=== PATIENT | male | born 1990 | race African-American/Black ===

== ENCOUNTER 2020-10-31 15:46 | Emergency (ER) | payer OTHER ==
[~2020-10-31 15:46] MED LIST: Iopamidol 370 76% 125 ML VIAL FS ONE
[2020-10-31 16:15] LABS: #Basophils 0.1 thou/uL (0.0-0.2); #Lymphocytes 1.3 thou/uL (1.20-3.40); #Monocytes 0.6 thou/uL (0.11-0.59); #Neutrophils 3.9 thou/uL (1.40-6.50); %Eosinophils 0.1 % (0.0-10.0); %Lymphocytes 21.6 % (21.0-51.0); %Monocytes 10.6 % (0.0-10.0); %Neutrophils 66.7 % (42.0-75.0); Hemoglobin 16.5 g/dL (14.0-18.0); Mean Corpuscular HGB CONC 32.1 g/dL (32.0-36.0); Mean Corpuscular Hemoglobin 29.8 pg (27.0-31.0); Mean Corpuscular Volume 92.8 fL (78.0-98.0); Platelet Count 213 thou/uL (130-400); Red Blood Cell (RBC) Count 5.52 mill/uL (4.70-6.10); White Blood Cell (WBC) Count 5.8 thou/uL (4.8-10.8)
[2020-10-31] MEDS ORDERED: Sodium Chloride 0.9% 1,000 ML ONE (16:22)
[2020-10-31] MEDS ORDERED: methylPREDNISolone Sod Succ/PF 125 MG/2 ML VIAL ONE (16:22)
[2020-10-31] MEDS ORDERED: Albuterol 200 PUFF (6.7GM INHALER) ONE (16:22)
[2020-10-31 16:32] LABS: ALT (SGPT) 22 U/L (8-55); AST (SGOT) 23 U/L (5-34); Albumin 5.1 g/dL (3.5-5.0); Alkaline Phosphatase 60 U/L (40-110); Anion Gap 20 mmol/L (10-20); BUN (Urea Nitrogen) 20 mg/dL (8.9-20.6); Bilirubin, Total 0.9 mg/dL (0.2-1.2); CK (CPK) 281 U/L (30-200); Calc. Creatinine Clearance 0 mL/min (70-130); Calcium 9.7 mg/dL (7.8-10.44); Carbon Dioxide 22 mmol/L (22-29); Chloride 104 mmol/L (98-107); Globulin 3.4 g/dL (2.4-3.5); Glucose 94 mg/dL (70-105); Lipase 22 U/L (8-78); Protein, Total 8.5 g/dL (6.0-8.3); Sodium 142 mmol/L (136-145)
--- NOTE | 2020-10-31 16:58 | RAD ---
Chest one view HISTORY: Chest pain. FINDINGS: The cardiac silhouette and pulmonary vasculature are unremarkable. Mediastinum is midline. No confluent airspace consolidation or evidence of pneumothorax. Acute leftward convex curvature of the upper thoracic spine. 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 Incomplete posterior fusion of T5. IMPRESSION : No acute abnormalities are demonstrated.
[2020-10-31 17:33] LABS: Acetaminophen Less than 6.0 mcg/mL (10.0-30.0); Alcohol Less than 10 mg/dL (Less than 10); Salicylate Less than 8.0 mg/dL (15.0-30.0)
--- NOTE | 2020-10-31 17:44 | CT ---
CTA Angio Chest W WO Con 10/31/2020 4:55 PM Indication: Chest tightness and nonproductive cough for one week Technique: Multiple CTA images were obtained of the thorax with IV contrast. 3-D rendering: MIP sofi nstructed images were created and reviewed. Comparison: No relevant prior studies available. Findings: Pulmonary arteries: There is a nonocclusive filling defect seen within the right interlobar artery o n image 57 of series 2 suspicious for pulmonary embolus. There is a partially occlusive thrombus seen involving the inferior segmental pulmonary artery of the lingula on image 59 of series 2. Heart and Aorta: Normal appearing. Mediastinum:Normal appearing. No enlarged lymph nodes. Lungs:The lungs are clear. Pleural space: Clear. Upper Abdomen: No acute abnormality. 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 No acute fracture is evident. Soft tissues:No abnormality. Other findings:None. Impression: 1. Nonocclusive filling defect within the right interlobar artery suspicious for pulmonary embolus. P artially occlusive thrombus within the inferior segmental pulmonary artery of the lingula. 2. Mild congenital scoliosis. 3. Findings called Dr. Perez 5:41 PM on October 31, 2020.
[2020-10-31 18:30] LABS: INR-International Normal Ratio 0.9; PTT 25.2 sec (22.9-36.1); Prothrombin Time 12.5 sec (12.0-14.7)
[2020-10-31] MEDS ORDERED: Enoxaparin Sodium 40 MG/0.4 ML SYRINGE ONE (18:36)
[2020-10-31] MEDS ORDERED: Enoxaparin Sodium 30 MG/0.3 ML SYRINGE ONE (18:36)
[2020-10-31 19:07] LABS: Amphetamine Not Detected (NotDetected); Barbiturates Screen Not Detected (NotDetected); Benzodiazepine Screen Not Detected (NotDetected); Cocaine Metabolite Screen Not Detected (NotDetected); Medtox Control Line Valid? VALID (VALID); Methadone Not Detected (NotDetected); Methamphetamine Not Detected (NotDetected); Opiate Screen Not Detected (NotDetected); Oxycodone Screen Not Detected (NotDetected); Phencyclidine (PCP) Not Detected (NotDetected); THC/Cannabinoid Screen Not Detected (NotDetected); Tricyclic Screen Not Detected (NotDetected)
== END 2020-11-01 02:07 | disposition short-term general hospital (02) ==
LOC: MADERS 15:46
DX: I26.99 Other pulmonary embolism without acute cor pulmonale (principal); J45.909 Unspecified asthma, uncomplicated
CPT/HCPCS: 36415; 71045; 71275; 80053; 80306; 80307; 82550; 83605; 83690; 84443; 84484; 85025; 85610; 85730; 93005; 96372; 96374; J1650; J2930; J7050; Q9967